=== PATIENT | male | born 1955 | race Two or more races ===

== ENCOUNTER 2019-11-16 18:01 | Emergency (ER) | payer SELFPAY ==
[~2019-11-16] VITALS: Ht 167.6 cm; Wt 72.6 kg
[2019-11-16 18:01] VITALS: BP 205/100
--- NOTE | 2019-11-16 18:01 | NUR ---
ED Nurse Note: Pt brought in by ambulance from [facility] d/t near syncopal episode. Pt said he "felt weak" and took himself to the floor. Per pt, he did not lose consciousness. Pt denies head or other trauma. Denies n/v. Respirations even and unlabored on room air. BP elevated 200/100 in triage. Temp 100.9. All other vitals stable as documented.
[2019-11-16] MEDS ORDERED: Acetaminophen 500mg (ES) tab ORAL ONE (18:15)
--- NOTE | 2019-11-16 18:40 | NUR ---
ED Nurse Note: ED MD aware of pt's bp of 200/100. No new orders given
[2019-11-16 18:47] LABS: BASOPHILS % (AUTO) 1.7 % (0.0-2.0); EOSINOPHILS % (AUTO) 0.5 % (0.0-3.0); HEMATOCRIT 41.1 % (42.0-52.0); HEMOGLOBIN 13.6 G/DL (14.2-18.0); LYMPHOCYTES % (AUTO) 14.9 % (20.0-45.0); MEAN CORPUSCULAR VOLUME 86 FL (80-99); MONOCYTES % (AUTO) 10.9 % (1.0-10.0); PLATELET COUNT 126 K/UL (150-450); RED BLOOD COUNT 4.78 M/UL (4.70-6.10); RED CELL DISTRIBUTION WIDTH 12.6 % (11.6-14.8); WHITE BLOOD COUNT 7.4 K/UL (4.8-10.8)
[2019-11-16 18:57] LABS: ANION GAP 12 mmol/L (5-15); BLOOD UREA NITROGEN 20 mg/dL (7-18); CALCIUM 9.3 MG/DL (8.5-10.1); CARBON DIOXIDE 26 MMOL/L (21-32); CHLORIDE 97 MMOL/L (98-107); CREATININE 1.6 MG/DL (0.55-1.30); POTASSIUM 3.4 MMOL/L (3.5-5.1); SODIUM 134 MMOL/L (136-145)
[2019-11-16 19:07] LABS: ALANINE AMINOTRANSFERASE 20 U/L (12-78); ALBUMIN 3.5 G/DL (3.4-5.0); ALBUMIN/GLOBULIN RATIO 0.9 (1.0-2.7); ALKALINE PHOSPHATASE 75 U/L (46-116); ASPARTATE AMINO TRANSFERASE 21 U/L (15-37); BILIRUBIN,TOTAL 0.4 MG/DL (0.2-1.0)
--- NOTE | 2019-11-16 19:10 | NUR ---
HAND-OFF: Report given to PORFIRIO Franklin. Pt is in stable condition; plan of care endorsed.
[2019-11-16 19:15] VITALS: BP 189/94
--- NOTE | 2019-11-16 19:15 | NUR ---
ED Nurse Note: Report received from PORFIRIO Griggs. Pt is awake and alert, no acute distress noted. 18g IV on L arm patent and intact. Will continue to monitor. Pt BP elevated, ERMD aware.
--- NOTE | 2019-11-16 19:30 | NUR ---
ED Nurse Note: SYDD bedside discussing plan of care with pt. Pt requesting to leave at this time. ERMD explaining risks of leaving against medical advice at this time.
[2019-11-16 19:36] LABS: APPEARANCE,URINE SLIGHTLY CLOUDY; BILIRUBIN, URINE NEGATIVE (NEGATIVE); COLOR,URINE PALE YELLOW; GLUCOSE, URINE (UA) 4+ (NEGATIVE); KETONES,URINE 1+ (NEGATIVE); LEUKOCYTE ESTERASE ,URINE NEGATIVE (NEGATIVE); NITRITE,URINE NEGATIVE (NEGATIVE); PH,URINE 5 (4.5-8.0); PROTEIN,URINE 4+ (NEGATIVE); UROBILINOGEN,URINE NORMAL MG/DL (0.0-1.0)
[2019-11-16 19:40] VITALS: BP 170/85
--- NOTE | 2019-11-16 19:40 | NUR ---
AMA: SEE AMA FORM. Pt informed of risks of leaving against medical advice up to and including . Pt is aaox4. All medical devices such as IV and ID band removed without complications. Pt is ambulatory with steady gait.
--- NOTE | 2019-11-16 21:11 | Emergency Room Report ---
History of Present Illness General Chief Complaint: Syncope Source: Patient Present Illness HPI 64-year-old male presents ED for evaluation. Brought in by EMS. States he at home felt dizzy and fell. Braced himself. Denies hitting his head or LOC. Per triage systolic greater than 200. Patient denies any headache. Denies any blurry vision. Denies any nausea or vomiting. Denies chest pain. States he does have history of hypertension. States he is compliant with his meds. Denies drug use. Denies alcohol use. No other aggravating relieving factors. Denies any other associated symptoms Allergies: Coded Allergies: No Known Allergies (Unverified , 11/16/19) Patient History Past Medical History: DM, HTN Pertinent Family History: none Social History: Denies: smoking, alcohol use, drug use Immunizations: UTD Reviewed Nursing Documentation: PMH: Agreed; PSxH: Agreed Nursing Documentation-PMH Past Medical History: No History, Except For Hx Hypertension: Yes Hx Diabetes: Yes Review of Systems All Other Systems: negative except mentioned in HPI Physical Exam Vital Signs Date Time Temp Pulse Resp B/P (MAP) Pulse Ox O2 Delivery O2 Flow Rate FiO2 11/16/19 17:55 100.9 105 16 220/101 (140) 100 Room Air Sp02 EP Interpretation: reviewed, normal General Appearance: no apparent distress, alert, GCS 15, non-toxic Head: normocephalic, atraumatic Eyes: bilateral eye normal inspection, bilateral eye PERRL ENT: hearing grossly normal, normal pharynx, no angioedema, normal voice Neck: full range of motion, supple/symm/no masses Respiratory: chest non-tender, lungs clear, normal breath sounds, speaking full sentences Cardiovascular #1: regular rate, rhythm, no edema Cardiovascular #2: 2+ carotid (R), 2+ carotid (L), 2+ radial (R), 2+ radial (L) , 2+ dorsalis pedis (R), 2+ dorsalis pedis (L) Gastrointestinal: normal bowel sounds, non tender, soft, non-distended, no guarding, no rebound Rectal: deferred Genitourinary: normal inspection, no CVA tenderness Musculoskeletal: back normal, normal range of motion, gait/station normal, non- tender Neurologic: alert, motor strength/tone normal, software lead III-XII nml as tested, oriented x3, sensory intact, responsive, speech normal Psychiatric: judgement/insight normal, memory normal, mood/affect normal, no suicidal/homicidal ideation Reflexes: 3+ bicep (R), 3+ bicep (L), 3+ tricep (R), 3+ tricep (L), 3+ knee (R) , 3+ knee (L) Skin: no rash Lymphatic: no adenopathy Medical Decision Making Diagnostic Impression: Primary Impression: Near syncope ER Course Hospital Course 64-year-old M presents ED s/p near syncopal episode. Differential diagnoses include: CO/unstable angina, arrythmia, dehydration, CVA/ TIA Clinical course Patient placed on stretcher. on monitoring tech. After initial history and physical I ordered labs, EKG, chest x-ray, IVFs, tylenol labs reviewed- no leukocytosis, hemoglobin/hematocrit ok, Cr 1.6, troponins x1 negative, BNP elevated EKG- NSR, LVH, twave flattening in lateral leads Chest x-ray- no acute process Per SF syncope rules patient would benefit from admission. I discussed this with the patient and he declines. States he wants to go home. States he will follow-up with his PMD tomorrow Understands the risks of leaving. Patient has competency to make his own decisions. Signed AMA form. I. I feel this is a highly complex case requiring extensive working including EKG/Rhythm strip, Xray/CT/US, Blood/urine lab work, repeat exams while in ED, and administration of strong opiates/narcotics for pain control, admission to hospital or close patient follow up. Diagnosis - near syncope left AMA Labs Test 11/16/19 18:00 11/16/19 18:30 White Blood Count 7.4 K/UL (4.8-10.8) Red Blood Count 4.78 M/UL (4.70-6.10) Hemoglobin 13.6 G/DL (14.2-18.0) Hematocrit 41.1 % (42.0-52.0) Mean Corpuscular Volume 86 FL (80-99) Mean Corpuscular Hemoglobin 28.5 PG (27.0-31.0) Mean Corpuscular Hemoglobin Concent 33.2 G/DL (32.0-36.0) Red Cell Distribution Width 12.6 % (11.6-14.8) Platelet Count 126 K/UL (150-450) Mean Platelet Volume 11.1 FL (6.5-10.1) Neutrophils (%) (Auto) 72.0 % (45.0-75.0) Lymphocytes (%) (Auto) 14.9 % (20.0-45.0) Monocytes (%) (Auto) 10.9 % (1.0-10.0) Eosinophils (%) (Auto) 0.5 % (0.0-3.0) Basophils (%) (Auto) 1.7 % (0.0-2.0) Sodium Level 134 MMOL/L (136-145) Potassium Level 3.4 MMOL/L (3.5-5.1) Chloride Level 97 MMOL/L (98-107) Carbon Dioxide Level 26 MMOL/L (21-32) Anion Gap 12 mmol/L (5-15) Blood Urea Nitrogen 20 mg/dL (7-18) Creatinine 1.6 MG/DL (0.55-1.30) Estimat Glomerular Filtration Rate 43.6 mL/min (>60) Glucose Level 451 MG/DL (74-106) Calcium Level 9.3 MG/DL (8.5-10.1) Total Bilirubin 0.4 MG/DL (0.2-1.0) Aspartate Amino Transf (AST/SGOT) 21 U/L (15-37) Alanine Aminotransferase (ALT/SGPT) 20 U/L (12-78) Alkaline Phosphatase 75 U/L (46-116) Troponin I 0.014 ng/mL (0.000-0.056) Pro-B-Type Natriuretic Peptide 3021 pg/mL (0-125) Total Protein 7.3 G/DL (6.4-8.2) Albumin 3.5 G/DL (3.4-5.0) Globulin 3.8 g/dL Albumin/Globulin Ratio 0.9 (1.0-2.7) Urine Color Pale yellow Urine Appearance Slightly cloudy Urine pH 5 (4.5-8.0) Urine Specific [place] 1.015 (1.005-1.035) Urine Protein 4+ (NEGATIVE) Urine Glucose (UA) 4+ (NEGATIVE) Urine Ketones 1+ (NEGATIVE) Urine Blood 3+ (NEGATIVE) Urine Nitrite Negative (NEGATIVE) Urine Bilirubin Negative (NEGATIVE) Urine Urobilinogen Normal MG/DL (0.0-1.0) Urine Leukocyte Esterase Negative (NEGATIVE) Urine RBC 10-15 /HPF (0 - 0) Urine WBC 0-2 /HPF (0 - 0) Urine Squamous Epithelial Cells Occasional /LPF Urine Bacteria Few /HPF (NONE) EKG Diagnostic Results Rate: normal Rhythm: NSR ST Segments: no acute changes ASA given to the pt in ED: No Rhythm Strip Diag. Results EP Interpretation: yes Rhythm: NSR, no PVC's, no ectopy Chest X-Ray Diagnostic Results Chest X-Ray Diagnostic Results : Chest X-Ray Ordered: Yes # of Views/Limited/Complete: 1 View Indication: Other - syncope EP Interpretation: Yes Interpretation: no consolidation, no effusion, no pneumothorax, no acute cardiopulmonary disease Impression: No acute disease Electronically Signed by: Electronically signed by Gamal Deshpande MD Last Vital Signs Date Time Temp Pulse Resp B/P (MAP) Pulse Ox O2 Delivery O2 Flow Rate FiO2 11/16/19 19:15 100.5 82 20 189/94 97 Room Air Status: improved Disposition: AGAINST MEDICAL ADVICE Condition: Stable Gamal Deshpande MD Nov 16, 2019 21:11
--- NOTE | 2019-11-17 10:46 | Diagnostic Imaging Report ---
Indication: Shortness of breath Technique: One view of the chest Comparison: none Findings: There is atelectasis at the left lung base. The heart size is normal. The aorta is tortuous and calcified. Impression: Left basilar atelectasis. No acute process otherwise
== END 2019-11-16 19:40 | disposition left against medical advice (07) ==
LOC: EDBD 18:01 → EMR 18:15
DX: R55 Syncope and collapse (principal); I10 Essential (primary) hypertension; E11.9 Type 2 diabetes mellitus without complications
CPT/HCPCS: 36415; 71045; 80053; 81003; 83880; 84484; 85025; 86710; 93005; 96360; 99284; J7030